=== PATIENT | female | born 1940 ===

== ENCOUNTER 2018-08-20 10:30 | Inpatient (IN) | payer OTHER ==
[~2018-08-20] VITALS: Ht 152.4 cm; Wt 57.6 kg
[2018-09-04] MEDS ORDERED: TIROSINT25 MCG PO (09:10)
[2018-09-04] MEDS ORDERED: GLIPIZIDE ER2.5 MG PO (09:11)
[2018-09-04] MEDS ORDERED: COZAAR25 MG PO (09:11)
[2018-09-04] MEDS ORDERED: FENOFIBRATE160 MG PO (09:11)
[2018-09-04] MEDS ORDERED: METFORMIN HCL500 M2 PO (09:12)
[2018-09-04] MEDS ORDERED: ATENOLOL25 MG PO (09:12)
[2018-09-04] MEDS ORDERED: OMEPRAZOLE20 MG PO (09:13)
== END 2018-09-15 11:23 | disposition home or self-care (01) | DRG 334 ==
LOC: SURG 09-04 09:30 → O/R 09-12 05:50 → SURG 09-12 05:50
PROVIDERS: ADMIT Colon & Rectal Surgery
PROC: 0DTP8ZZ Resection of Rectum, Via Natural or Artificial Opening Endoscopic (ICD-10-PCS; principal; 2018-09-12 08:45)
DX: D12.8 Benign neoplasm of rectum (principal); I10 Essential (primary) hypertension; E11.9 Type 2 diabetes mellitus without complications; G56.01 Carpal tunnel syndrome, right upper limb

== ENCOUNTER → 2019-10-18 | Day surgery (SDC) | payer OTHER ==
[~2019-10-18] MED LIST: ATENOLOL25 MG PO; COZAAR25 MG PO; FENOFIBRATE160 MG PO; GLIPIZIDE ER2.5 MG PO; METFORMIN HCL500 M2 PO; OMEPRAZOLE20 MG PO; TIROSINT25 MCG PO
== END | disposition home or self-care (01) ==
LOC: ADM 10-11 10:15 → CIR.AMB 05:50 → ADM 10:15 → CIR.AMB 10:15
PROVIDERS: ATTEND Colon & Rectal Surgery
DX: K62.89 Other specified diseases of anus and rectum (principal); K64.1 Second degree hemorrhoids; Z20.828 Contact with and (suspected) exposure to other viral communicable diseases